=== PATIENT | female | born 1995 | race Caucasian/White ===

== ENCOUNTER 2018-02-11 14:32 | Emergency (ER) | payer MEDICAID ==
[~2018-02-11] VITALS: Ht 157.5 cm; Wt 70.3 kg
[2018-02-11] MEDS ORDERED: methylPREDNISolone sod succ 125mg/2ml vial IV ONE (14:50)
[2018-02-11] MEDS ORDERED: normal saline 1000ML IV soln IVB STA (14:50)
[2018-02-11] MEDS ORDERED: famotidine/PF 10 mg/ml inj IV ONE (14:50)
[2018-02-11] MEDS ORDERED: diphenhydrAMINE 50 mg/ml inj IV ONE (14:50)
[2018-02-11] MEDS ORDERED: epiNEPHrine 1 mg/ml inj SQ ONE (14:50)
[2018-02-11] MEDS ORDERED: LORazepam 2 mg/ml vial IV ONE (15:10)
[2018-02-11 15:53] LABS: BASOPHILS # (AUTO) 0.1 X10'3 (0-0.2); BASOPHILS % (AUTO) 0.4 % (0-1); EOSINOPHILS % (AUTO) 0.1 % (0-6); HEMATOCRIT 42.1 % (35.0-45.0); HEMOGLOBIN 14.3 g/dl (12.0-16.0); LYMPHOCYTES % (AUTO) 37.1 % (21-51); MEAN CORPUSCULAR HEMOGLOBIN 26.8 PG (27.0-31.0); MEAN CORPUSCULAR HGB CONC 34.1 % (33.0-36.5); MEAN CORPUSCULAR VOLUME 78.6 FL (78-98); MEAN PLATELET VOLUME 8.1 FL (7.4-10.4); MONOCYTES # (AUTO) 0.7 X10'3 (0-0.9); MONOCYTES % (AUTO) 5.1 % (2-12); NEUTROPHILS # (AUTO) 7.7 X10'3 (1.8-7.7); NEUTROPHILS % (AUTO) 57.3 % (42-75); PLATELET COUNT 486 X10'3 (140-440); RED BLOOD COUNT 5.35 X10'6 (4.20-5.60); RED CELL DISTRIBUTION WIDTH 13.2 % (11.5-14.5); WHITE BLOOD COUNT 13.4 X10'3 (4.5-11.0)
[2018-02-11 16:09] LABS: ALANINE AMINOTRANSFERASE 16 U/L (12-78); ALBUMIN 3.5 G/DL (3.4-5.0); ALBUMIN/GLOBULIN RATIO 0.9 (1.1-1.5); ALKALINE PHOSPHATASE 94 IU/L (46-116); ANION GAP 14 (8-16); ASPARTATE AMINO TRANSFERASE 13 U/L (10-37); BILIRUBIN,TOTAL 0.4 MG/DL (0.1-1.0); BLOOD UREA NITROGEN 9 MG/DL (7-18); BUN/CREATININE RATIO 13.2 (6.6-38.0); CALCIUM 8.2 MG/DL (8.5-10.1); CHLORIDE 106 MMOL/L (99-107); CREATININE 0.68 MG/DL (0.40-0.90); GLUCOSE 271 MG/DL (70-104); POTASSIUM 3.2 MMOL/L (3.5-5.1); SODIUM 141 MMOL/L (135-145); TOTAL CARBON DIOXIDE 20.6 MMOL/L (24-32); TOTAL PROTEIN 7.2 G/DL (6.4-8.2); eGFR > 90 ML/MIN
[2018-02-11] MEDS ORDERED: normal saline 1000ML IV soln IVB ONE ×2 (16:10→17:10)
[2018-02-11] MEDS ORDERED: potassium Cl 20 mEq SR tablet PO STA (16:40)
[2018-02-11] MEDS ORDERED: DIPH25CA83 PO (16:55)
[2018-02-11] MEDS ORDERED: FAMO-128 PO (16:55)
[2018-02-11] MEDS ORDERED: PRED20TA PO (16:55)
[2018-02-11 18:16] VITALS: BP 117/54
== END 2018-02-11 18:19 | disposition home or self-care (01) ==
LOC: ER 14:33
DX: T78.40XA Allergy, unspecified, initial encounter (principal); R22.9 Localized swelling, mass and lump, unspecified; F17.200 Nicotine dependence, unspecified, uncomplicated; E10.8 Type 1 diabetes mellitus with unspecified complications; Z79.899 Other long term (current) drug therapy; R06.00 Dyspnea, unspecified; X58.XXXA Exposure to other specified factors, initial encounter
CPT/HCPCS: 36415; 80053; 82948; 85025; 96372; 96374; 96375; 99284; J0171; J1200; J2060; J2930; J3490; J7030

== ENCOUNTER 2018-02-16 08:40 | Emergency (ER) | payer MEDICAID ==
[~2018-02-16] VITALS: Ht 309.9 cm; Wt 72.7 kg
[~2018-02-16 08:40] MED LIST: DIPH25CA83 PO; FAMO-128 PO; PRED20TA PO
[2018-02-16] MEDS ORDERED: normal saline 1000ML IV soln IVB ONE (08:50)
[2018-02-16] MEDS ORDERED: epiNEPHrine 1 mg/ml inj ONE (08:50)
[2018-02-16] MEDS ORDERED: diphenhydrAMINE 50 mg/ml inj IV ONE (08:50)
[2018-02-16] MEDS ORDERED: epiNEPHrine 1 mg/ml inj IM ONE (08:50)
[2018-02-16] MEDS ORDERED: methylPREDNISolone sod succ 125mg/2ml vial IV ONE (08:50)
[2018-02-16] MEDS ORDERED: LORazepam 2 mg/ml vial IV ONE (08:55)
[2018-02-16 10:35] VITALS: BP_DIAS 52
[2018-02-16 11:01] VITALS: BP_SYST 118
[2018-02-16] MEDS ORDERED: EPIN0.3P3 IM (11:05)
== END 2018-02-16 11:15 | disposition home or self-care (01) ==
LOC: ER 08:40
DX: T88.6XXA Anaphylactic reaction due to adverse effect of correct drug or medicament properly administered, initial encounter (principal); T36.95XA Adverse effect of unspecified systemic antibiotic, initial encounter; E11.9 Type 2 diabetes mellitus without complications; F17.200 Nicotine dependence, unspecified, uncomplicated; Z88.1 Allergy status to other antibiotic agents; Z88.8 Allergy status to other drugs, medicaments and biological substances; Z79.899 Other long term (current) drug therapy; Y92.89 Other specified places as the place of occurrence of the external cause
CPT/HCPCS: 82948; 96372; 96374; 96375; 99291; J0171; J1200; J2060; J2930; J7030

== ENCOUNTER 2018-03-09 13:11 | Emergency (ER) | payer MEDICAID ==
[~2018-03-09] VITALS: Ht 157.5 cm; Wt 73.9 kg
[~2018-03-09 13:11] MED LIST changes: +EPIN0.3P3 IM
[2018-03-09] MEDS ORDERED: ondansetron/PF 4mg/2ml inj IV ONE (13:30)
[2018-03-09] MEDS ORDERED: normal saline 1000ML IV soln IVB ONE (13:30)
[2018-03-09 13:31] VITALS: BP 139/76
[2018-03-09 13:58] LABS: BASOPHILS % (AUTO) 0.4 % (0-1); EOSINOPHILS # (AUTO) 0.1 X10'3 (0-0.9); EOSINOPHILS % (AUTO) 1.3 % (0-6); HEMOGLOBIN 14.9 g/dl (12.0-16.0); LYMPHOCYTES # (AUTO) 1.6 X10'3 (1.1-4.8); LYMPHOCYTES % (AUTO) 18.4 % (21-51); MEAN CORPUSCULAR HEMOGLOBIN 26.8 PG (27.0-31.0); MEAN CORPUSCULAR HGB CONC 34.6 % (33.0-36.5); MEAN CORPUSCULAR VOLUME 77.7 FL (78-98); MEAN PLATELET VOLUME 7.8 FL (7.4-10.4); MONOCYTES # (AUTO) 0.7 X10'3 (0-0.9); MONOCYTES % (AUTO) 8.3 % (2-12); NEUTROPHILS # (AUTO) 6.3 X10'3 (1.8-7.7); NEUTROPHILS % (AUTO) 71.6 % (42-75); PLATELET COUNT 367 X10'3 (140-440); RED BLOOD COUNT 5.54 X10'6 (4.20-5.60); RED CELL DISTRIBUTION WIDTH 13.1 % (11.5-14.5); WHITE BLOOD COUNT 8.8 X10'3 (4.5-11.0)
[2018-03-09 14:03] LABS: CLARITY,URINE CLEAR (Clear); COLOR,URINE YELLOW (Yellow); GLUCOSE, URINE NEGATIVE (Neg); KETONES,URINE NEGATIVE (Neg); LEUKOCYTE ESTERASE ,URINE NEGATIVE (Neg); NITRITES, URINE NEGATIVE (Neg); OCCULT BLOOD,URINE NEGATIVE (Neg); PROTEIN,URINE TRACE mg/dl (Neg)
[2018-03-09 14:05] LABS: UA COLLECTION TYPE CLN CATCH MIDSTREAM
[2018-03-09 14:06] LABS: URINE HCG NEGATIVE (NEG)
[2018-03-09 14:10] LABS: BACTERIA,URINE NONE SEEN /HPF (Neg); MUCUS STRANDS NONE SEEN /LPF (Neg); RBC,URINE 0-2 /HPF (0-2); SPERM FEW /HPF; SQUAMOUS EPITHELIAL CELL,UR MANY /LPF (FEW); WBC,URINE 0-4 /HPF (0-4)
[2018-03-09 14:12] LABS: ALANINE AMINOTRANSFERASE 26 U/L (12-78); ALBUMIN 3.7 G/DL (3.4-5.0); ALBUMIN/GLOBULIN RATIO 0.9 (1.1-1.5); ALKALINE PHOSPHATASE 101 IU/L (46-116); ANION GAP 8 (8-16); ASPARTATE AMINO TRANSFERASE 18 U/L (10-37); BILIRUBIN,TOTAL 0.5 MG/DL (0.1-1.0); BLOOD UREA NITROGEN 23 MG/DL (7-18); BUN/CREATININE RATIO 38.3 (6.6-38.0); CALCIUM 9.2 MG/DL (8.5-10.1); CHLORIDE 102 MMOL/L (99-107); GLUCOSE 90 MG/DL (70-104); POTASSIUM 3.7 MMOL/L (3.5-5.1); SODIUM 138 MMOL/L (135-145); TOTAL CARBON DIOXIDE 27.6 MMOL/L (24-32); TOTAL PROTEIN 7.7 G/DL (6.4-8.2); eGFR > 90 ML/MIN
[2018-03-09] MEDS ORDERED: ONDA4TAB9 PO (14:24)
== END 2018-03-09 14:33 | disposition home or self-care (01) ==
LOC: ER 13:12
DX: B34.9 Viral infection, unspecified (principal); R10.84 Generalized abdominal pain; R19.7 Diarrhea, unspecified; R11.2 Nausea with vomiting, unspecified; E11.9 Type 2 diabetes mellitus without complications; Z88.8 Allergy status to other drugs, medicaments and biological substances; Z79.899 Other long term (current) drug therapy
CPT/HCPCS: 36415; 80053; 81001; 81025; 82948; 85025; 96374; 99284; J2405; J7030

== ENCOUNTER 2018-05-08 09:42 | Emergency (ER) | payer MEDICAID ==
[~2018-05-08] VITALS: Ht 157.5 cm; Wt 69.0 kg
[~2018-05-08 09:42] MED LIST changes: +INSU100I39 SQ; -PRED20TA PO
[2018-05-08 10:13] VITALS: BP 110/70
[2018-05-08] MEDS ORDERED: INSU100I39 SQ (11:54)
== END 2018-05-08 12:02 | disposition home or self-care (01) ==
LOC: ER 09:43
DX: E11.9 Type 2 diabetes mellitus without complications (principal); Z76.0 Encounter for issue of repeat prescription; J45.909 Unspecified asthma, uncomplicated; F17.200 Nicotine dependence, unspecified, uncomplicated; Z88.1 Allergy status to other antibiotic agents; Z88.8 Allergy status to other drugs, medicaments and biological substances; Z79.4 Long term (current) use of insulin; Z79.899 Other long term (current) drug therapy
CPT/HCPCS: 82948; 99283

== ENCOUNTER 2018-05-29 11:47 | Emergency (ER) | payer MEDICAID ==
[~2018-05-29] VITALS: Ht 157.5 cm; Wt 70.3 kg
[2018-05-29 11:51] VITALS: BP 139/73
[2018-05-29 12:19] LABS: BASOPHILS # (AUTO) 0.1 X10'3 (0-0.2); BASOPHILS % (AUTO) 0.5 % (0-1); EOSINOPHILS # (AUTO) 0.1 X10'3 (0-0.9); EOSINOPHILS % (AUTO) 0.8 % (0-6); HEMATOCRIT 41.7 % (35.0-45.0); HEMOGLOBIN 14.5 g/dl (12.0-16.0); LYMPHOCYTES # (AUTO) 2.3 X10'3 (1.1-4.8); LYMPHOCYTES % (AUTO) 21.8 % (21-51); MEAN CORPUSCULAR HEMOGLOBIN 27.2 PG (27.0-31.0); MEAN CORPUSCULAR HGB CONC 34.7 % (33.0-36.5); MEAN CORPUSCULAR VOLUME 78.4 FL (78-98); MEAN PLATELET VOLUME 8.5 FL (7.4-10.4); MONOCYTES # (AUTO) 0.5 X10'3 (0-0.9); MONOCYTES % (AUTO) 4.4 % (2-12); NEUTROPHILS # (AUTO) 7.7 X10'3 (1.8-7.7); NEUTROPHILS % (AUTO) 72.5 % (42-75); PLATELET COUNT 414 X10'3 (140-440); RED BLOOD COUNT 5.32 X10'6 (4.20-5.60); RED CELL DISTRIBUTION WIDTH 12.4 % (11.5-14.5); WHITE BLOOD COUNT 10.7 X10'3 (4.5-11.0)
[2018-05-29 12:23] LABS: CLARITY,URINE CLEAR (Clear); COLOR,URINE STRAW (Yellow); GLUCOSE, URINE >=1000 mg/dl (Neg); KETONES,URINE 15 mg/dl (Neg); LEUKOCYTE ESTERASE ,URINE NEGATIVE (Neg); NITRITES, URINE NEGATIVE (Neg); OCCULT BLOOD,URINE TRACE-LYSED (Neg); PROTEIN,URINE NEGATIVE (Neg); URINE HCG NEGATIVE (NEG); UROBILINOGEN,URINE 0.2 E.U/dL (0.2-1.0)
[2018-05-29 12:25] LABS: UA COLLECTION TYPE CLN CATCH MIDSTREAM
[2018-05-29 12:29] LABS: PROTHROMBIN TIME 9.9 SECONDS (9.0-12.0)
[2018-05-29 12:33] LABS: BACTERIA,URINE NONE SEEN /HPF (Neg); MUCUS STRANDS NONE SEEN /LPF (Neg); RBC,URINE 0-2 /HPF (0-2); SQUAMOUS EPITHELIAL CELL,UR MODERATE /LPF (FEW); WBC,URINE 0-4 /HPF (0-4)
[2018-05-29 12:37] LABS: ALANINE AMINOTRANSFERASE 21 U/L (12-78); ALBUMIN 3.7 G/DL (3.4-5.0); ALBUMIN/GLOBULIN RATIO 0.9 (1.1-1.5); ALKALINE PHOSPHATASE 111 IU/L (46-116); ANION GAP 11 (8-16); ASPARTATE AMINO TRANSFERASE 11 U/L (10-37); BILIRUBIN,TOTAL 0.7 MG/DL (0.1-1.0); BLOOD UREA NITROGEN 25 MG/DL (7-18); CALCIUM 8.9 MG/DL (8.5-10.1); CHLORIDE 95 MMOL/L (99-107); CREATININE 0.96 MG/DL (0.40-0.90); POTASSIUM 4.4 MMOL/L (3.5-5.1); SODIUM 130 MMOL/L (135-145); TOTAL PROTEIN 7.6 G/DL (6.4-8.2); eGFR 73 ML/MIN
[2018-05-29 12:51] LABS: GLUCOSE 667 MG/DL (70-104)
[2018-05-29] MEDS ORDERED: INSU100I39 SQ (13:54)
[2018-05-29] MEDS ORDERED: insulin regular, human 10 units/0.1 ml syringe SQ ONE (14:25)
[2018-05-30] MEDS ORDERED: INSU100I39 SQ (21:29)
== END 2018-05-29 14:41 | disposition home or self-care (01) ==
LOC: ER 11:47
DX: Z76.0 Encounter for issue of repeat prescription (principal); E11.65 Type 2 diabetes mellitus with hyperglycemia; J45.909 Unspecified asthma, uncomplicated; F17.200 Nicotine dependence, unspecified, uncomplicated; Z88.1 Allergy status to other antibiotic agents; Z91.041 Radiographic dye allergy status; Z91.048 Other nonmedicinal substance allergy status; Z79.4 Long term (current) use of insulin; Z79.899 Other long term (current) drug therapy
CPT/HCPCS: 36415; 80053; 81001; 81025; 82948; 85025; 85610; 96372; 99284; J1815

== ENCOUNTER 2018-05-30 19:46 | Emergency (ER) | payer MEDICAID ==
[~2018-05-30] VITALS: Ht 157.5 cm; Wt 63.0 kg
[2018-05-30 19:59] VITALS: BP 118/76
[2018-05-30 20:48] LABS: CLARITY,URINE CLEAR (Clear); COLOR,URINE YELLOW (Yellow); GLUCOSE, URINE >=1000 mg/dl (Neg); KETONES,URINE >=80 mg/dl (Neg); LEUKOCYTE ESTERASE ,URINE NEGATIVE (Neg); NITRITES, URINE NEGATIVE (Neg); OCCULT BLOOD,URINE TRACE-INTACT (Neg); PH,URINE 5.5 (4.8-8.0); PROTEIN,URINE NEGATIVE (Neg); UROBILINOGEN,URINE 0.2 E.U/dL (0.2-1.0)
[2018-05-30 20:49] LABS: URINE HCG NEGATIVE (NEG)
[2018-05-30 20:58] LABS: UA COLLECTION TYPE CLN CATCH MIDSTREAM
[2018-05-30 20:59] LABS: BACTERIA,URINE FEW /HPF (Neg); SQUAMOUS EPITHELIAL CELL,UR MODERATE /LPF (FEW)
[2018-05-30] MEDS ORDERED: insulin regular, human 10 units/0.1 ml syringe SQ ONE (21:20)
[2018-05-30] MEDS ORDERED: potassium Cl 20 mEq SR tablet PO STA (21:20)
[2018-05-30] MEDS ORDERED: INSU100I39 SQ (21:29)
== END 2018-05-30 21:49 | disposition home or self-care (01) ==
LOC: ER 19:47
DX: E11.649 Type 2 diabetes mellitus with hypoglycemia without coma (principal); J45.909 Unspecified asthma, uncomplicated; Z88.1 Allergy status to other antibiotic agents; Z88.8 Allergy status to other drugs, medicaments and biological substances; Z79.4 Long term (current) use of insulin; Z79.899 Other long term (current) drug therapy
CPT/HCPCS: 81001; 81025; 82948; 87088; 96372; 99284; J1815

== ENCOUNTER 2019-06-10 17:16 | Emergency (ER) | payer MEDICAID ==
[~2019-06-10] VITALS: Ht 157.5 cm; Wt 68.0 kg
[2019-06-10 17:19] VITALS: BP 139/85
[2019-06-10] MEDS ORDERED: naproxen 500mg tablet PO ONE (18:30)
[2019-06-10] MEDS ORDERED: sulfamethoxazole/trimethoprim DS (800/160mg) tablet PO ONE (18:30)
[2019-06-10] MEDS ORDERED: SULF1TAB48 PO (19:37)
== END 2019-06-10 20:20 | disposition home or self-care (01) ==
LOC: ER 17:16
DX: L02.411 Cutaneous abscess of right axilla (principal); E10.65 Type 1 diabetes mellitus with hyperglycemia; J45.909 Unspecified asthma, uncomplicated; F10.99 Alcohol use, unspecified with unspecified alcohol-induced disorder; Z88.1 Allergy status to other antibiotic agents; Z91.041 Radiographic dye allergy status; Z91.09 Other allergy status, other than to drugs and biological substances; Z79.4 Long term (current) use of insulin; Z79.899 Other long term (current) drug therapy; Y90.9 Presence of alcohol in blood, level not specified
CPT/HCPCS: 10061; 82948; 87070; 87077; 87186; 99284

== ENCOUNTER 2019-07-01 03:50 | Emergency (ER) | payer MEDICAID ==
[~2019-07-01] VITALS: Ht 157.5 cm; Wt 68.2 kg
[2019-07-01] MEDS ORDERED: ONDA4TAB12 PO (03:59)
[2019-07-01] MEDS ORDERED: ondansetron 4mg rapidly disintigrating tab PO ONE (04:00)
[2019-07-01] MEDS ORDERED: ibuprofen tablet 400 MG TABLET PO ONE (04:00)
[2019-07-01] MEDS ORDERED: ibuprofen 200mg tablet PO ONE (04:00)
[2019-07-01 04:25] VITALS: BP 115/74
== END 2019-07-01 04:30 | disposition home or self-care (01) ==
LOC: ER 03:51
DX: S00.03XA Contusion of scalp, initial encounter (principal); J45.909 Unspecified asthma, uncomplicated; E11.9 Type 2 diabetes mellitus without complications; F17.210 Nicotine dependence, cigarettes, uncomplicated; Z88.1 Allergy status to other antibiotic agents; Z88.8 Allergy status to other drugs, medicaments and biological substances; Z79.4 Long term (current) use of insulin; Z79.899 Other long term (current) drug therapy; W22.8XXA Striking against or struck by other objects, initial encounter; Y93.89 Activity, other specified; Y92.89 Other specified places as the place of occurrence of the external cause; Y99.8 Other external cause status
CPT/HCPCS: 99283

== ENCOUNTER 2019-09-24 12:14 | Emergency (ER) | payer MEDICAID ==
[~2019-09-24] VITALS: Ht 157.5 cm; Wt 72.6 kg
[~2019-09-24 12:14] MED LIST changes: +ONDA4TAB12 PO
[2019-09-24 12:46] VITALS: BP 146/73
[2019-09-24 12:49] LABS: BASOPHILS # (AUTO) 0.1 X10'3 (0-0.2); BASOPHILS % (AUTO) 0.8 % (0-1); EOSINOPHILS # (AUTO) 0.1 X10'3 (0-0.9); EOSINOPHILS % (AUTO) 1.2 % (0-6); HEMATOCRIT 41.4 % (35.0-45.0); HEMOGLOBIN 14.4 g/dl (12.0-16.0); LYMPHOCYTES # (AUTO) 3.1 X10'3 (1.1-4.8); LYMPHOCYTES % (AUTO) 31.3 % (21-51); MEAN CORPUSCULAR HGB CONC 34.8 g/dL (33.0-36.5); MEAN CORPUSCULAR VOLUME 77.8 FL (78-98); MEAN PLATELET VOLUME 7.5 FL (7.4-10.4); MONOCYTES # (AUTO) 0.8 X10'3 (0-0.9); MONOCYTES % (AUTO) 7.8 % (2-12); NEUTROPHILS # (AUTO) 5.8 X10'3 (1.8-7.7); NEUTROPHILS % (AUTO) 58.9 % (42-75); PLATELET COUNT 392 X10'3 (140-440); RED BLOOD COUNT 5.33 X10'6 (4.20-5.60); RED CELL DISTRIBUTION WIDTH 12.8 % (11.5-14.5); WHITE BLOOD COUNT 9.8 X10'3 (4.5-11.0)
[2019-09-24 13:20] LABS: ALANINE AMINOTRANSFERASE 22 U/L (12-78); ALKALINE PHOSPHATASE 83 IU/L (46-116); ANION GAP 9 (8-16); ASPARTATE AMINO TRANSFERASE 16 U/L (10-37); BILIRUBIN,TOTAL 0.3 MG/DL (0.1-1.0); BLOOD UREA NITROGEN 12 MG/DL (7-18); BUN/CREATININE RATIO 21.8 (6.6-38.0); CALCIUM 9.4 MG/DL (8.5-10.1); CHLORIDE 104 MMOL/L (99-107); CREATININE 0.55 MG/DL (0.40-0.90); GLUCOSE 144 MG/DL (70-104); POTASSIUM 3.9 MMOL/L (3.5-5.1); SODIUM 139 MMOL/L (135-145); TOTAL CARBON DIOXIDE 26.2 MMOL/L (24-32); TOTAL PROTEIN 8.1 G/DL (6.4-8.2); eGFR > 90 ML/MIN
== END 2019-09-24 14:49 | disposition home or self-care (01) ==
LOC: ER 12:15
DX: J22 Unspecified acute lower respiratory infection (principal); E10.9 Type 1 diabetes mellitus without complications; F17.200 Nicotine dependence, unspecified, uncomplicated; J45.909 Unspecified asthma, uncomplicated; Z88.1 Allergy status to other antibiotic agents; Z91.040 Latex allergy status; Z79.4 Long term (current) use of insulin
CPT/HCPCS: 36415; 71046; 80053; 82009; 82948; 85025; 87502; 87503; 99284

== ENCOUNTER 2020-01-15 21:48 | Inpatient (IN) | payer MEDICAID ==
[~2020-01-15] VITALS: Ht 157.5 cm; Wt 72.7 kg
--- NOTE | 2020-01-15 12:25 | NUR ---
Received report from Douglas FRYE from the ED. Patient arrived at 1245 in a wheelchair, saline locked, room air, a/o, vss, no signs of distress will continue to monitor
[2020-01-15 12:45] VITALS: BP 112/68
[2020-01-15] MEDS ORDERED: HYDROcodone/acetaminophen 5mg/325mg tablet PO ONE (22:10)
[2020-01-15] MEDS ORDERED: normal saline 1000ML IV soln IV ONE (22:10)
[2020-01-15 22:33] LABS: BASOPHILS # (AUTO) 0.1 X10'3 (0-0.2); BASOPHILS % (AUTO) 0.6 % (0-1); EOSINOPHILS # (AUTO) 0.1 X10'3 (0-0.9); EOSINOPHILS % (AUTO) 0.5 % (0-6); HEMATOCRIT 37.1 % (35.0-45.0); HEMOGLOBIN 12.7 g/dl (12.0-16.0); LYMPHOCYTES # (AUTO) 3.1 X10'3 (1.1-4.8); LYMPHOCYTES % (AUTO) 18.9 % (21-51); MEAN CORPUSCULAR HEMOGLOBIN 26.9 PG (27.0-31.0); MEAN CORPUSCULAR HGB CONC 34.3 g/dL (33.0-36.5); MEAN CORPUSCULAR VOLUME 78.3 FL (78-98); MEAN PLATELET VOLUME 7.6 FL (7.4-10.4); MONOCYTES # (AUTO) 1.5 X10'3 (0-0.9); MONOCYTES % (AUTO) 9.2 % (2-12); NEUTROPHILS # (AUTO) 11.5 X10'3 (1.8-7.7); NEUTROPHILS % (AUTO) 70.8 % (42-75); PLATELET COUNT 400 X10'3 (140-440); RED BLOOD COUNT 4.73 X10'6 (4.20-5.60); RED CELL DISTRIBUTION WIDTH 12.7 % (11.5-14.5); WHITE BLOOD COUNT 16.3 X10'3 (4.5-11.0)
[2020-01-15] MEDS ORDERED: vancomycin/NS 1 GM ADD-VANTAGE 250 ML IV ONE (22:40)
[2020-01-15] MEDS ORDERED: iohexol 300mg/ml 100ml inj. ONE (22:41)
[2020-01-15 22:46] LABS: ALANINE AMINOTRANSFERASE 14 U/L (12-78); ALBUMIN 3.5 G/DL (3.4-5.0); ALBUMIN/GLOBULIN RATIO 0.8 (1.1-1.5); ALKALINE PHOSPHATASE 80 IU/L (46-116); ANION GAP 10 (8-16); ASPARTATE AMINO TRANSFERASE 12 U/L (10-37); BILIRUBIN,TOTAL 0.3 MG/DL (0.1-1.0); BLOOD UREA NITROGEN 14 MG/DL (7-18); BUN/CREATININE RATIO 17.7 (6.6-38.0); CALCIUM 9.3 MG/DL (8.5-10.1); CHLORIDE 101 MMOL/L (99-107); CREATININE 0.79 MG/DL (0.40-0.90); GLUCOSE 107 MG/DL (70-104); SODIUM 136 MMOL/L (135-145); TOTAL CARBON DIOXIDE 24.6 MMOL/L (24-32); TOTAL PROTEIN 7.8 G/DL (6.4-8.2); eGFR 89 ML/MIN
[2020-01-15 22:48] LABS: HCG SERUM QL NEGATIVE
[2020-01-16] MEDS ORDERED: magnesium 2GM in 50ml NS 50 ML IV PRN (00:05)
[2020-01-16] MEDS ORDERED: potassium Cl 20 mEq SR tablet PO PRN ×2 (00:05)
[2020-01-16] MEDS ORDERED: glucagon, human recombinant 1mg kit SUBCUT PRN ×2 (00:05→00:10)
[2020-01-16] MEDS ORDERED: dextrose ORAL solution 15 GM/59 ML bottle PO PRN ×4 (00:05→00:10)
[2020-01-16] MEDS ORDERED: MESSAGE TO PHARMACY PO ONE ×2 (00:05→00:10)
[2020-01-16] MEDS ORDERED: acetaminophen 325mg tablet PO PRN (00:05)
[2020-01-16] MEDS ORDERED: insulin Lispro (HumaLOG) vial - multi-dose SQ SCH (00:05)
[2020-01-16] MEDS ORDERED: magnesium 4gm in 100ml NS 100 ML IV PRN (00:05)
[2020-01-16] MEDS ORDERED: magnesium Cl slow-release 64mg tablet PO PRN (00:05)
[2020-01-16] MEDS ORDERED: dextrose 50%-water 50ml dispensing syringe IV PRN ×4 (00:05→00:10)
[2020-01-16] MEDS ORDERED: magnesium hydroxide 30ml (MOM) UD suspension PO PRN (00:05)
[2020-01-16] MEDS ORDERED: ondansetron/PF 4mg/2ml inj IV PRN (00:05)
[2020-01-16] MEDS ORDERED: mag hydrox/Alum hydrox/simeth 30ml oral suspension PO PRN (00:05)
[2020-01-16] MEDS ORDERED: potassium CL 10mEq/100ml bag 100 ML IV PRN ×2 (00:05)
[2020-01-16 00:45] VITALS: BP 112/68
[2020-01-16 00:46] LABS: HEMOGLOBIN A1C 7.2 % (4.5-6.2)
[2020-01-16] MEDS: HYDROcodone/acetaminophen 5mg/325mg tablet PO PRN ×3 (01:35→12:52)
[2020-01-16] MEDS ORDERED: morphine 2 MG/ML inj. syringe IV PRN (04:00)
[2020-01-16] MEDS ORDERED: traMADol 50MG tablet PO PRN (04:00)
[2020-01-16] MEDS ORDERED: vancomycin/NS 1 GM ADD-VANTAGE 250 ML IV SCH ×2 (06:00→07:28)
--- NOTE | 2020-01-16 06:22 | NUR ---
Problems reprioritized. Patient report given, questions answered & plan of care reviewed with Grace FRYE.
--- NOTE | 2020-01-16 06:35 | NUR ---
Patient in room [facility]. I have received report from UDAY JOHNSON and had the opportunity to ask questions and assume patient care.
[2020-01-16 07:00] VITALS: BP 97/50
[2020-01-16] MEDS ORDERED: K and/or MAG REPLACEMENT MC SCH (08:00)
[2020-01-16] MEDS ORDERED: docusate sod 100mg capsule PO SCH (08:00)
--- NOTE | 2020-01-16 09:04 | NUR ---
Paged Dr Smith re: possible toradol for inflammation and pain.
--- NOTE | 2020-01-16 09:50 | NUR ---
PATIENT WAS GIVEN A BOLUS OF INSULIN, 2.36 UNITS, VIA INSULIN PUMP
[2020-01-16] MEDS ORDERED: normal saline 1000ml 1,000 ML IV SCH (10:50)
[2020-01-16 11:00] VITALS: BP 109/62
[2020-01-16] MEDS ORDERED: insulin pump.resvr SQ SCH (12:00)
--- NOTE | 2020-01-16 12:13 | NUR ---
DM consult: Pt with T1DM, current A1c 7.2%. Pt seen at bedside denies any questions about DM management. Per H&P pt uses insulin per sliding scale. Currently on own insulin pump and hyperglycemic protocol. Pt provided with written DM education with referral to outpatient CDE course and RD contact information. Pt endorses a good appetite and reports consuming roughly 80% of breakfast tray this morning. Pt states difficulty eating d/t pain secondary to swollen face however denies texture modifications at this time. Pt denies food allergies or difficulty chewing/swallowing. Pt unsure of when LBM was, currently receiving routine bowel care and denies constipation or diarrhea. Encouraged pt to reach out to RD if she has any questions or would like texture modification to ease PO intake. Will continue to follow. Addendum: 01/16/20 at [address] Amended: Links added.
[2020-01-16] MEDS ORDERED: clindamycin 600mg/D5W 50ml 50 ML IV SCH (14:00)
--- NOTE | 2020-01-16 16:00 | NUR ---
PATIENT TRANSFERRED TO [facility], REPORT CALLED IN TO UDAY HARRIS IN MED/SURGE AT [facility], INSULIN PUMP SUPPLIES RETRIEVED FROM PHARMACY AND SENT WITH PATIENT, ALL BELONGINGS SENT WITH PATIENT, PATIENT TAKEN TO [facility] IN AN AMBULANCE
[2020-01-16] MEDS ORDERED: mupirocin 2% nasal ointment 1gm UD NS SCH (20:00)
[2020-01-16] MEDS ORDERED: insulin glargine (Lantus) pen - multi-dose SQ SCH (21:00)
[2020-01-16] MEDS ORDERED: VANCOMYCIN LEVEL IV ONE (21:30)
== END 2020-01-16 16:02 | disposition short-term general hospital (02) | DRG 115 ==
LOC: ER 21:48 → ED HOLD 01-16 00:04 → UNDOADMIN 01-16 00:09 → ED HOLD 01-16 00:40 → SUR 3N 01-16 00:40 → UNDODISIN 01-16 16:02
PROVIDERS: ADMIT Family Medicine; ATTEND Family Medicine
PROC: BN251ZZ Computerized Tomography (CT Scan) of Facial Bones using Low Osmolar Contrast (ICD-10-PCS; principal; 2020-01-16)
DX: J34.0 Abscess, furuncle and carbuncle of nose (principal); E10.65 Type 1 diabetes mellitus with hyperglycemia; L03.211 Cellulitis of face; L02.01 Cutaneous abscess of face; F17.210 Nicotine dependence, cigarettes, uncomplicated; J45.909 Unspecified asthma, uncomplicated; R00.0 Tachycardia, unspecified; Z79.4 Long term (current) use of insulin; Z79.899 Other long term (current) drug therapy
CPT/HCPCS: 36415; 70487; 76937; 80053; 82948; 83036; 84145; 84703; 85025; 87081; 96365; 99285; G0378; J1815; J2270; J3370; J3490; J7030; Q9967

== ENCOUNTER 2021-03-01 05:37 | Emergency (ER) | payer MEDICAID ==
[~2021-03-01] VITALS: Ht 157.5 cm; Wt 77.7 kg
[~2021-03-01 05:37] MED LIST changes: -DIPH25CA83 PO; -FAMO-128 PO; -ONDA4TAB12 PO
[2021-03-01] MEDS ORDERED: LIDOcaine 1% W/epiNEPHrine 1:200,000 10ml vial IJ ONE (07:00)
[2021-03-01] MEDS ORDERED: bacitracin 15gm ointment TP ONE (07:00)
[2021-03-01] MEDS ORDERED: acetaminophen 325mg tablet PO ONE (07:00)
[2021-03-01] MEDS ORDERED: TETanus/Pertussis (Acell)/Diphther VAC/PF (Tdap-Adult) 0.5ml syringe IMVAC ONE (07:00)
--- NOTE | 2021-03-01 08:27 | NUR ---
ONE SAFE PLACE CALLED, EMERGENCY ADVOCATE WILL CALL THE CANCER PROGRAM COORDINATOR TO CALL BACK FOR POSSIBLE SAFETY PLACEMENT.
[2021-03-01 08:56] VITALS: BP 100/54
== END 2021-03-01 09:17 | disposition home or self-care (01) ==
LOC: ER 05:39
DX: S81.811A Laceration without foreign body, right lower leg, initial encounter (principal); M54.2 Cervicalgia; M79.641 Pain in right hand; J45.909 Unspecified asthma, uncomplicated; E11.9 Type 2 diabetes mellitus without complications; Z72.89 Other problems related to lifestyle; Z20.3 Contact with and (suspected) exposure to rabies; Z88.1 Allergy status to other antibiotic agents; Z88.8 Allergy status to other drugs, medicaments and biological substances; Z79.4 Long term (current) use of insulin; Z79.899 Other long term (current) drug therapy; Y08.89XA Assault by other specified means, initial encounter; Y93.89 Activity, other specified; Y92.89 Other specified places as the place of occurrence of the external cause; Y99.8 Other external cause status
CPT/HCPCS: 12002; 29125; 73130; 73610; 90471; 90715; 99284

== ENCOUNTER 2021-05-15 15:27 | Emergency (ER) | payer MEDICAID ==
[~2021-05-15] VITALS: Ht 162.6 cm; Wt 90.9 kg
[2021-05-15 16:03] VITALS: BP 141/83
== END 2021-05-15 16:17 | disposition home or self-care (01) ==
LOC: ER 15:27
DX: R07.81 Pleurodynia (principal); J45.909 Unspecified asthma, uncomplicated; E11.9 Type 2 diabetes mellitus without complications; Z72.89 Other problems related to lifestyle; Z88.1 Allergy status to other antibiotic agents; Z91.048 Other nonmedicinal substance allergy status; Z91.041 Radiographic dye allergy status; Z79.4 Long term (current) use of insulin; Z79.899 Other long term (current) drug therapy; Z86.16 Personal history of COVID-19
CPT/HCPCS: 99281

== ENCOUNTER 2022-02-18 09:07 | Emergency (ER) | payer MEDICAID ==
[~2022-02-18] VITALS: Ht 157.5 cm; Wt 81.8 kg
[2022-02-18] MEDS ORDERED: ondansetron/PF 4mg/2ml inj IV ONE (09:35)
[2022-02-18] MEDS ORDERED: normal saline 1000ml 1,000 ML IVB ONE (09:35)
[2022-02-18 09:59] LABS: BASOPHILS % (AUTO) 0.3 % (0-1); EOSINOPHILS # (AUTO) 0.1 X10'3 (0-0.9); EOSINOPHILS % (AUTO) 0.5 % (0-6); HEMATOCRIT 33.4 % (35.0-45.0); HEMOGLOBIN 11.8 g/dl (12.0-16.0); LYMPHOCYTES # (AUTO) 1.9 X10'3 (1.1-4.8); LYMPHOCYTES % (AUTO) 17.7 % (21-51); MEAN CORPUSCULAR HGB CONC 35.4 g/dL (33.0-36.5); MEAN CORPUSCULAR VOLUME 76.2 FL (78-98); MEAN PLATELET VOLUME 7.5 FL (7.4-10.4); MONOCYTES % (AUTO) 9.5 % (2-12); NEUTROPHILS # (AUTO) 7.6 X10'3 (1.8-7.7); PLATELET COUNT 327 X10'3 (140-440); RED BLOOD COUNT 4.38 X10'6 (4.20-5.60); RED CELL DISTRIBUTION WIDTH 13.6 % (11.5-14.5); WHITE BLOOD COUNT 10.5 X10'3 (4.5-11.0)
[2022-02-18 10:01] LABS: CLARITY,URINE SLIGHTLY CLOUDY (Clear); COLOR,URINE YELLOW (Yellow); GLUCOSE, URINE NEGATIVE (Neg); KETONES,URINE >=80 mg/dl (Neg); LEUKOCYTE ESTERASE ,URINE NEGATIVE (Neg); NITRITES, URINE POSITIVE (Neg); OCCULT BLOOD,URINE NEGATIVE (Neg); PROTEIN,URINE NEGATIVE (Neg); UROBILINOGEN,URINE 0.2 E.U/dL (0.2-1.0)
[2022-02-18 10:08] LABS: ALANINE AMINOTRANSFERASE 13 U/L (12-78); ALBUMIN/GLOBULIN RATIO 0.7 (1.1-1.5); ALKALINE PHOSPHATASE 53 IU/L (46-116); ANION GAP 11 (8-16); ASPARTATE AMINO TRANSFERASE 15 U/L (10-37); BILIRUBIN,TOTAL 0.3 MG/DL (0.1-1.0); BLOOD UREA NITROGEN 8 MG/DL (7-18); CALCIUM 8.7 MG/DL (8.5-10.1); CHLORIDE 105 MMOL/L (99-107); CREATININE 0.47 MG/DL (0.40-0.90); GLUCOSE 98 MG/DL (70-104); POTASSIUM 3.5 MMOL/L (3.5-5.1); SODIUM 137 MMOL/L (135-145); TOTAL CARBON DIOXIDE 21.1 MMOL/L (24-32); TOTAL PROTEIN 7.2 G/DL (6.4-8.2); eGFR > 90 ML/MIN
[2022-02-18 10:11] LABS: UA COLLECTION TYPE CLN CATCH MIDSTREAM
[2022-02-18 10:14] LABS: BACTERIA,URINE 4+ /HPF (Neg); MUCUS STRANDS NONE SEEN /LPF (Neg); RBC,URINE NONE SEEN /HPF (0-2); SQUAMOUS EPITHELIAL CELL,UR MANY /LPF (FEW)
[2022-02-18] MEDS ORDERED: ONDA4TAB12 PO (10:57)
[2022-02-18] MEDS ORDERED: NITR100C6 PO (10:57)
--- NOTE | 2022-02-18 12:44 | NUR ---
FS 54. Patient stating she feels fine. Pump reading 87. Juice and crackers given. MD notified. Pt stating she's ready to go home.
[2022-02-18 13:26] VITALS: BP 117/76
== END 2022-02-18 13:28 | disposition home or self-care (01) ==
LOC: ER 09:07
DX: A08.39 Other viral enteritis (principal); O99.612 Diseases of the digestive system complicating pregnancy, second trimester; O99.512 Diseases of the respiratory system complicating pregnancy, second trimester; O23.32 Infections of other parts of urinary tract in pregnancy, second trimester; N39.0 Urinary tract infection, site not specified; Z3A.17 17 weeks gestation of pregnancy; E11.9 Type 2 diabetes mellitus without complications; J45.909 Unspecified asthma, uncomplicated; Z88.1 Allergy status to other antibiotic agents
CPT/HCPCS: 36415; 80053; 81001; 82948; 85025; 96361; 96374; 99285; J2405; J7030

== ENCOUNTER 2024-03-07 08:32 | Emergency (ER) | payer MEDICAID ==
[~2024-03-07] VITALS: Ht 157.5 cm; Wt 79.9 kg
[~2024-03-07 08:32] MED LIST changes: +NITR100C6 PO; +ONDA4TAB12 PO
[2024-03-07 08:42] VITALS: TEMP 98.5
[2024-03-07] MEDS ORDERED: INSU100V40 SQ (09:27)
[2024-03-07] MEDS ORDERED: LORA-268 (09:27)
[2024-03-07] MEDS ORDERED: DULO20CA18 PO (09:27)
[2024-03-07] MEDS: normal saline 1000ML IV soln IVB ONE ×2 (11:15)
[2024-03-07 11:42] LABS: BASOPHILS % (AUTO) 0.4 % (0-1); EOSINOPHILS # (AUTO) 0.1 X10'3 (0-0.9); EOSINOPHILS % (AUTO) 1.8 % (0-6); HEMATOCRIT 38.9 % (35.0-45.0); HEMOGLOBIN 13.2 g/dl (12.0-16.0); LYMPHOCYTES # (AUTO) 2.7 X10'3 (1.1-4.8); MEAN CORPUSCULAR HEMOGLOBIN 26.1 PG (27.0-31.0); MEAN CORPUSCULAR HGB CONC 33.8 g/dL (33.0-36.5); MEAN CORPUSCULAR VOLUME 77.2 FL (78-98); MEAN PLATELET VOLUME 7.7 FL (7.4-10.4); MONOCYTES # (AUTO) 0.9 X10'3 (0-0.9); MONOCYTES % (AUTO) 10.6 % (2-12); NEUTROPHILS # (AUTO) 4.6 X10'3 (1.8-7.7); NEUTROPHILS % (AUTO) 55.2 % (42-75); PLATELET COUNT 330 X10'3 (140-440); RED BLOOD COUNT 5.04 X10'6 (4.20-5.60); RED CELL DISTRIBUTION WIDTH 13.5 % (11.5-14.5); WHITE BLOOD COUNT 8.4 X10'3 (4.5-11.0)
[2024-03-07 11:54] LABS: ALBUMIN 3.2 G/DL (3.4-5.0); ANION GAP 7 (8-16); BLOOD UREA NITROGEN 17 MG/DL (7-18); BUN/CREATININE RATIO 31.5 (10.0-20.0); CALCIUM 8.8 MG/DL (8.5-10.1); CHLORIDE 102 MMOL/L (99-107); CREATININE 0.54 MG/DL (0.40-0.90); GLUCOSE 206 MG/DL (70-104); LIPASE 16 U/L (16-77); POTASSIUM 4.1 MMOL/L (3.5-5.1); SODIUM 136 MMOL/L (135-145); TOTAL CARBON DIOXIDE 26.8 MMOL/L (24-32); eCRCL 123 ML/MIN; eGFR > 90 ML/MIN
[2024-03-07] MEDS ORDERED: ONDA8TAB13 PO (12:50)
[2024-03-07 13:46] LABS: HCG SERUM QL NEGATIVE
[2024-03-07 15:58] VITALS: BP 119/62; PULSE 81; RESP 15; O2SAT 96
[2024-03-07 17:21] LABS: BILIRUBIN,URINE NEGATIVE (Neg); CLARITY,URINE SLIGHTLY CLOUDY (Clear); COLOR,URINE YELLOW (Yellow); GLUCOSE, URINE 250 mg/dl (Neg); KETONES,URINE TRACE mg/dl (Neg); LEUKOCYTE ESTERASE ,URINE NEGATIVE (Neg); NITRITES, URINE NEGATIVE (Neg); OCCULT BLOOD,URINE NEGATIVE (Neg); PROTEIN,URINE NEGATIVE (Neg)
[2024-03-07 17:33] LABS: UA COLLECTION TYPE CLN CATCH MIDSTREAM
[2024-03-07 17:34] LABS: MUCUS STRANDS MODERATE /LPF (Neg); SQUAMOUS EPITHELIAL CELL,UR MANY /LPF (FEW)
[2024-03-07 17:35] LABS: BACTERIA,URINE FEW /HPF (Neg); WBC,URINE 0-4 /HPF (0-4)
== END 2024-03-07 16:28 | disposition home or self-care (01) ==
LOC: ER 08:32
DX: K52.9 Noninfective gastroenteritis and colitis, unspecified (principal); R10.9 Unspecified abdominal pain; J45.909 Unspecified asthma, uncomplicated; E10.9 Type 1 diabetes mellitus without complications; F17.200 Nicotine dependence, unspecified, uncomplicated; Z88.1 Allergy status to other antibiotic agents; Z79.899 Other long term (current) drug therapy
CPT/HCPCS: 36415; 80048; 81001; 82948; 83690; 84703; 85025; 96360; 99283; J7030

== ENCOUNTER 2024-12-30 09:24 | Emergency (ER) | payer MEDICAID ==
[~2024-12-30] VITALS: Ht 157.5 cm; Wt 92.5 kg
[~2024-12-30 09:24] MED LIST changes: +DULO20CA18 PO; +INSU100V40 SQ; +LORA-268; -NITR100C6 PO; +ONDA-243 PO; +ONDA-245 PO; -ONDA4TAB12 PO
[2024-12-30] MEDS: LORazepam 1 MG tablet PO ONE (09:58)
[2024-12-30] MEDS: ipratropium/albuterol 3ml nebule NEB ONE (10:17)
[2024-12-30 10:18] VITALS: PULSE 111; PULSE 114; RESP 18; O2SAT 99
[2024-12-30 10:54] LABS: ALANINE AMINOTRANSFERASE 19 U/L (12-78); ALBUMIN 3.3 G/DL (3.4-5.0); ALBUMIN/GLOBULIN RATIO 0.8 (1.1-1.5); ALKALINE PHOSPHATASE 93 IU/L (46-116); ANION GAP 7 (8-16); ASPARTATE AMINO TRANSFERASE 17 U/L (10-37); BILIRUBIN,TOTAL 0.3 MG/DL (0.1-1.0); BLOOD UREA NITROGEN 12 MG/DL (7-18); BUN/CREATININE RATIO 20.7 (10.0-20.0); CALCIUM 8.6 MG/DL (8.5-10.1); CHLORIDE 105 MMOL/L (99-107); CREATININE 0.58 MG/DL (0.40-0.90); GLUCOSE 246 MG/DL (70-104); POTASSIUM 4.2 MMOL/L (3.5-5.1); SODIUM 139 MMOL/L (135-145); TOTAL CARBON DIOXIDE 27.3 MMOL/L (24-32); TOTAL PROTEIN 7.5 G/DL (6.4-8.2); eCRCL 113 ML/MIN; eGFR > 90 ML/MIN
[2024-12-30 11:09] LABS: BASOPHILS # (AUTO) 0.1 X10'3 (0-0.2); BASOPHILS % (AUTO) 0.4 % (0-1); EOSINOPHILS # (AUTO) 0.1 X10'3 (0-0.9); EOSINOPHILS % (AUTO) 0.4 % (0-6); HEMATOCRIT 38.7 % (35.0-45.0); HEMOGLOBIN 13.1 g/dl (12.0-16.0); LYMPHOCYTES # (AUTO) 4.4 X10'3 (1.1-4.8); LYMPHOCYTES % (AUTO) 30.8 % (21-51); MEAN CORPUSCULAR HEMOGLOBIN 25.7 PG (27.0-31.0); MEAN CORPUSCULAR VOLUME 75.6 FL (78-98); MEAN PLATELET VOLUME 7.4 FL (7.4-10.4); MONOCYTES # (AUTO) 0.9 X10'3 (0-0.9); MONOCYTES % (AUTO) 6.3 % (2-12); NEUTROPHILS # (AUTO) 8.9 X10'3 (1.8-7.7); NEUTROPHILS % (AUTO) 62.1 % (42-75); PLATELET COUNT 417 X10'3 (140-440); RED BLOOD COUNT 5.12 X10'6 (4.20-5.60); RED CELL DISTRIBUTION WIDTH 13.9 % (11.5-14.5); WHITE BLOOD COUNT 14.4 X10'3 (4.5-11.0)
[2024-12-30 12:08] LABS: BILIRUBIN,URINE NEGATIVE (Neg); CLARITY,URINE CLEAR (Clear); COLOR,URINE YELLOW (Yellow); GLUCOSE, URINE 100 mg/dl (Neg); KETONES,URINE NEGATIVE (Neg); LEUKOCYTE ESTERASE ,URINE NEGATIVE (Neg); NITRITES, URINE NEGATIVE (Neg); OCCULT BLOOD,URINE NEGATIVE (Neg); PROTEIN,URINE NEGATIVE (Neg); UA COLLECTION TYPE CLN CATCH MIDSTREAM; UROBILINOGEN,URINE 0.2 E.U/dL (0.2-1.0)
[2024-12-30 12:09] LABS: URINE HCG NEGATIVE (NEG)
[2024-12-30] MEDS ORDERED: iohexol 300mg/ml 100ml inj. ONE (12:39)
[2024-12-30] MEDS ORDERED: ALBU8HFA INH (14:43)
[2024-12-30] MEDS ORDERED: AZIT-164 PO (14:43)
[2024-12-30] MEDS ORDERED: LORA-269 PO (14:43)
[2024-12-30] MEDS ORDERED: dexamethasone 4mg tablet PO ONE (14:50)
[2024-12-30] MEDS: DEXAMETHASONE 6 MG TABLET PO ONE (15:01)
[2024-12-30] MEDS: azithromycin 250mg tablet PO ONE (15:01)
[2024-12-30] MEDS: dexamethasone 4mg tablet PO ONE (15:01)
[2024-12-30 15:09] VITALS: BP 126/64; PULSE 89; RESP 16; TEMP 98; O2SAT 99
== END 2024-12-30 15:11 | disposition home or self-care (01) ==
LOC: ER 09:24
DX: J04.0 Acute laryngitis (principal); J02.9 Acute pharyngitis, unspecified; R59.0 Localized enlarged lymph nodes; J45.909 Unspecified asthma, uncomplicated; E11.9 Type 2 diabetes mellitus without complications; Z88.1 Allergy status to other antibiotic agents; Z88.8 Allergy status to other drugs, medicaments and biological substances
CPT/HCPCS: 36415; 70360; 70491; 71045; 80053; 81003; 81025; 85025; 94640; 99285; Q9967; 94760; J8540